=== PATIENT | male | born 1970 | race Caucasian/White ===

== ENCOUNTER 2021-10-11 17:23 | Emergency (ER) | payer MEDICAID ==
[~2021-10-11] VITALS: Ht 182.9 cm; Wt 81.6 kg
[2021-10-11 17:30] VITALS: BP 102/68
--- NOTE | 2021-10-11 17:48 | NUR ---
BIBA to bed 12
--- NOTE | 2021-10-11 18:38 | NUR ---
XRAY AT BEDSIDE
--- NOTE | 2021-10-11 18:43 | NUR ---
51 YR MALE C/O ABDOMINAL PAIN 8/10 STABBING LUQ FOR 4 DAYS. REPORTS DIARRHEA. REPORTS "BLACK WET" STOOLS. LAST BM THIS MORNING. STATES FREQUENT URINARY URGENCY FOR PAST 4 DAYS. MEDHX: ALCOHOL ABUSE, DEPRESSION, HTN ALLERGIES: NKA
[2021-10-11 19:00] LABS: BASOPHILS % (AUTO) 0.7 % (0.0-2.0); EOSINOPHILS % (AUTO) 0.5 % (0.0-4.0); HEMATOCRIT 28.6 % (36-52); HEMOGLOBIN 9.7 g/dL (12.0-18.0); LYMPHOCYTES # (AUTO) 1.8 K/uL (2.0-11.5); LYMPHOCYTES % (AUTO) 41.9 % (20.5-51.1); MEAN CORPUSCULAR HEMOGLOBIN 30 pg (27-31); MEAN CORPUSCULAR HGB CONC 34 g/dL (33-37); MEAN CORPUSCULAR VOLUME 87.8 fL (80-94); MONOCYTES # (AUTO) 0.3 K/uL (0.8-1.0); MONOCYTES % (AUTO) 6.7 % (1.7-9.3); NEUTROPHILS # (AUTO) 2.2 K/uL (1.8-7.7); NEUTROPHILS % (AUTO) 50.2 % (42.2-75.2); PLATELET COUNT (AUTO) 103 K/uL (140-450); RED BLOOD CELL COUNT(AUTO) 3.26 MIL/uL (4.20-6.10); RED CELL DISTRIBUTION WIDTH 17.2 % (11.6-13.7); WHITE BLOOD COUNT (AUTO) 4.3 K/uL (4.8-10.8)
[2021-10-11] MEDS ORDERED: MORPHINE SULFATE 4 MG/ML SYR IVP ONE (19:10)
[2021-10-11 19:20] LABS: ALBUMIN 2.8 g/dL (3.4-5.0); ANION GAP 11.9 (8-16); CARBON DIOXIDE 28.1 mmol/L (21-32); CREATININE 0.7 mg/dL (0.6-1.3); TOTAL BILIRUBIN 0.2 mg/dL (0.0-1.0)
--- NOTE | 2021-10-11 19:26 | NUR ---
Pt report given to Aditya CABAN. Transfer of care at this time.
--- NOTE | 2021-10-11 19:44 | NUR ---
PT TAKEN TO CT
--- NOTE | 2021-10-11 19:55 | NUR ---
PT BACK FROM CT
[2021-10-11] MEDS ORDERED: PIPERACILLIN/TAZOBACTAM 3.375 GM in DEXTROSE 5% 50 ML IV ONE (20:55)
[2021-10-11] MEDS ORDERED: VANCOMYCIN 1,000 MG in DEXTROSE 5% 250 ML IV ONE (20:55)
[2021-10-11] MEDS ORDERED: PIPERACILLIN/TAZOBACTAM 3.375 GM VIAL IV ONE (21:32)
--- NOTE | 2021-10-11 22:06 | NUR ---
LABS AT BEDSIDE
[2021-10-11] MEDS ORDERED: VANCOMYCIN 1,000 MG VIAL ONE (22:23)
[2021-10-12 00:13] VITALS: BP 95/52
--- NOTE | 2021-10-12 00:14 | NUR ---
Patient discharged with v/s stable. Written and verbal after care instructions given and explained. Patient verbalized understanding. Ambulatory with steady gait. All questions addressed prior to discharge. Advised to follow up with PMD. VSS, A/OX4, UNLABORED BREATHING, STEADY GAIT, AND CALM DEMEANOR. FOOD AND BLANKET PROVIDED FOR PT.
--- NOTE | 2021-10-16 12:53 | NUR ---
LATE ENTRY- IV NORMAL SALINE DISCONTINUED AT 0014.
== END 2021-10-12 00:13 | disposition home or self-care (01) ==
LOC: MED 17:23
DX: K52.9 Noninfective gastroenteritis and colitis, unspecified (principal); F10.129 Alcohol abuse with intoxication, unspecified
CPT/HCPCS: 36415; 71045; 74176; 80053; 83605; 83690; 83880; 84484; 85025; 87040; 93005; 96365; 96366; 96367; 96375; 99285; J2270; J2543; J3370; Q0092

== ENCOUNTER 2022-01-20 14:53 | Emergency (ER) | payer MEDICAID ==
[~2022-01-20] VITALS: Ht 182.9 cm; Wt 81.6 kg
[2022-01-20 15:02] VITALS: BP 126/70
--- NOTE | 2022-01-20 22:50 | NUR ---
PATIENT ELOPED FROM FACILITY. DISCHARGE INSTRUCTIONS NOT GIVEN TO PATIENT. DR. AVILEZ NOTIFIED.
== END 2022-01-20 22:50 | disposition left against medical advice (07) ==
LOC: MED 14:53
DX: F10.129 Alcohol abuse with intoxication, unspecified (principal); F32.9 Major depressive disorder, single episode, unspecified; Z59.00 Homelessness unspecified
CPT/HCPCS: 99283